=== PATIENT | female | born 1980 | race Two or more races ===

== ENCOUNTER 2020-11-03 14:08 | Emergency (ER) | payer OTHER ==
[2020-11-03 14:46] VITALS: BP 130/79; PULSE 90; TEMP 98.1; BMI 31.6
[2020-11-03] MEDS ORDERED: KETOROLAC TROMETHAMINE 60 MG/2 ML VIAL IM ONE (15:54)
[2020-11-03] MEDS ORDERED: KETOROLAC TROMETHAMINE 60 MG/2 ML VIAL ONE (15:57)
== END 2020-11-03 16:02 | disposition home or self-care (01) ==
LOC: JERFT 14:08
PROC: 3E0233Z Introduction of Anti-inflammatory into Muscle, Percutaneous Approach (ICD-10-PCS; principal; 2020-11-03)
DX: M54.12 Radiculopathy, cervical region (principal)
CPT/HCPCS: 72050-TC-FY; 99284-25

== ENCOUNTER 2021-09-13 16:57 | Emergency (ER) | payer OTHER ==
[2021-09-13 17:26] VITALS: BP 132/66; PULSE 110; TEMP 99.4; BMI 31.6
== END 2021-09-13 20:43 | disposition home or self-care (01) ==
LOC: JER 16:57
DX: J06.9 Acute upper respiratory infection, unspecified (principal)
CPT/HCPCS: 71046-TC-FY; 87651; 87804; 99284-25; C9803; U0003; U0005

== ENCOUNTER 2023-04-23 20:40 | Emergency (ER) | payer OTHER ==
[2023-04-23 20:55] VITALS: BP 133/87; PULSE 96; RESP 20; TEMP 98.2; BMI 33.3
[2023-04-23] MEDS: ALBUTEROL SO4 2.5/IPRATROPIUM 0.5 INH SOL 3 ML VIAL.NEB. NEB SCH ×4 (21:26→22:08)
[2023-04-23] MEDS ORDERED: ACETAMINOPHEN 325 MG TABLET (FP) PO ONE (21:30)
[2023-04-23] MEDS ORDERED: ALBUTEROL SO4 2.5/IPRATROPIUM 0.5 INH SOL 3 ML VIAL.NEB. NEB ONE (21:30)
[2023-04-23] MEDS ORDERED: predniSONE 20 MG TABLET (UD) PO ONE (21:31)
[2023-04-23] MEDS ORDERED: ONDANSETRON *ODT* 4 MG TABLET SL ONE (21:32)
[2023-04-23] MEDS ORDERED: ACETAMINOPHEN 325 MG TABLET (FP) ONE (21:43)
[2023-04-23] MEDS ORDERED: predniSONE 20 MG TABLET (UD) ONE (21:43)
[2023-04-23] MEDS ORDERED: ONDANSETRON *ODT* 4 MG TABLET ONE (21:43)
[2023-04-23] MEDS ORDERED: predniSONE 10 MG TABLET (UD) ONE (21:43)
[2023-04-23] MEDS ORDERED: IBUPROFEN 600 MG TABLET (FP) PO ONE (23:03)
== END 2023-04-23 23:01 | disposition home or self-care (01) ==
LOC: JER 20:40
PROC: 3E0F7GC Introduction of Other Therapeutic Substance into Respiratory Tract, Via Natural or Artificial Opening (ICD-10-PCS; principal; 2023-04-23)
DX: J45.901 Unspecified asthma with (acute) exacerbation (principal); R05.9 Cough, unspecified; R06.02 Shortness of breath; R50.9 Fever, unspecified; R07.89 Other chest pain; R11.0 Nausea; R51.9 Headache, unspecified; R07.0 Pain in throat; Z20.822 Contact with and (suspected) exposure to COVID-19
CPT/HCPCS: 0241U-QW; 71046-TC-FY; 93005; 93010; 99285-25; Q0162

== ENCOUNTER → 2023-05-26 | Day surgery (SDC) | payer OTHER | END | disposition home or self-care (01) | LOC: JRADIR 09:34 | PROVIDERS: ATTEND Family Medicine Geriatric Medicine | PROC: 0G9G3ZX Drainage of Left Thyroid Gland Lobe, Percutaneous Approach, Diagnostic (ICD-10-PCS; principal; 2023-05-26) | DX: E04.1 Nontoxic single thyroid nodule (principal) | CPT/HCPCS: 10005; 76942; 88173; 88305-TC; 88341-TC; 88342-TC ==

== ENCOUNTER 2024-02-12 04:14 | Day surgery (SDC) | payer OTHER ==
[2024-02-10 16:53] VITALS: BMI 33.3
[2024-02-12] MEDS ORDERED: LIDOCAINE 1%/EPI 1:100000 (20 ML MULTI DOSE VIAL) ONE (07:28)
[2024-02-12] MEDS ORDERED: BUPIVACAINE HCL/PF 0.5% (5MG/ML) 10 ML VIAL ONE (07:28)
[2024-02-12] MEDS ORDERED: THROMBIN (BOVINE) 5,000 UNIT VIAL TP ONE (07:28)
[2024-02-12] MEDS ORDERED: FENTANYL CITRATE/PF 50 MCG/ML VIAL ONE ×5 (09:19→12:11)
[2024-02-12] MEDS ORDERED: LIDOCAINE HCL/PF 2% SDV 5ML VIAL ONE (09:19)
[2024-02-12] MEDS ORDERED: ONDANSETRON 4 MG/2 ML VIAL ONE ×2 (09:19→11:40)
[2024-02-12] MEDS ORDERED: DEXAMETHASONE SOD PHOSPHATE 4 MG/1 ML VIAL ONE (09:19)
[2024-02-12] MEDS ORDERED: MIDAZOLAM HCL 2 MG/2 ML SINGLE DOSE VIAL ONE (09:20)
[2024-02-12] MEDS ORDERED: PROPOFOL 80 ML ONE (09:20)
[2024-02-12] MEDS ORDERED: ROCURONIUM BROMIDE 50 MG/5 ML SYRINGE ONE (09:21)
[2024-02-12] MEDS ORDERED: SUCCINYLCHOLINE CHLORIDE 200 MG/10 ML SYRINGE ONE (09:21)
[2024-02-12] MEDS: LIDOCAINE 1%/EPI 1:100000 (20 ML MULTI DOSE VIAL) IJ ONE (10:25)
[2024-02-12] MEDS: BUPIVACAINE HCL/PF 0.5% (5 MG/ML) 30 ML VIAL IJ ONE (10:25)
[2024-02-12] MEDS ORDERED: oxyCODONE HCL 5 MG TABLET PO PRN (11:36)
[2024-02-12] MEDS: ONDANSETRON 4 MG/2 ML VIAL IVPUSH PRN (11:45)
[2024-02-12] MEDS ORDERED: LACTATED RINGERS SOLUTION 1,000 ML IV SCH (11:45)
[2024-02-12 13:29] VITALS: RESP 18
[2024-02-12 16:52] VITALS: BP 129/82; PULSE 89; TEMP 98
== END 2024-02-12 16:40 | disposition home or self-care (01) ==
LOC: JASU-SURG 04:14
PROVIDERS: ATTEND Surgery
PROC: 0GTG0ZZ Resection of Left Thyroid Gland Lobe, Open Approach (ICD-10-PCS; principal; 2024-02-12 10:00)
DX: D34 Benign neoplasm of thyroid gland (principal)
CPT/HCPCS: 81025; 88307-TC; 94760